=== PATIENT | male | born 1945 | race Caucasian/White ===

== ENCOUNTER 2019-07-20 12:56 | Emergency (ER) | payer MEDICARE ==
[~2019-07-20] VITALS: Ht 174 cm; Wt 97.5 kg
[2019-07-20 13:26] LABS: BILIRUBIN,URINE NEGATIVE (NEGATIVE); UROBILINOGEN,URINE NORMAL (NEGATIVE)
[2019-07-20 13:27] LABS: BASOPHIL % 0.5 % (0.0-0.2); EOSINOPHIL # 0.1 10^3/uL (0.0-0.2); EOSINOPHIL % 2.2 % (0.0-5.0); MONOCYTES # 0.5 10^3/uL (0.3-0.8); NEUTROPHIL # 4.3 10^3/uL (1.8-7.7); NEUTROPHILS % 66.1 % (41.0-85.0); PLATELET COUNT 212 10^3/uL (150-400); RED CELL DISTRIBUTION WIDTH 12.9 % (11.5-14.5)
--- NOTE | 2019-07-20 13:27 | DIREP ---
PROCEDURE:CT HEAD OR BRAIN W/O CONTRAST COMPARISON:None. INDICATIONS:possible stroke TECHNIQUE:CT images were created without intravenous contrast. FINDINGS: VENTRICLES:The ventricles are normal in size and configuration. CEREBRUM:Normal cerebral morphology with appropriate fowler white matter differentiation. CEREBELLUM:Negative. BRAINSTEM:Negative. BASAL CISTERNS:Negative. HEMORRHAGE:No MASS LESION:No ACUTE INFARCT:No SKULL:Normal. SINUSES:Normal. OTHER:None CONCLUSION:No hemorrhage, mass effect, or extra-axial fluid collection. Dictated by: Grace Gutierrez MD on 07/20/2019 at 01:18 PM
[2019-07-20 13:29] VITALS: BP 133/89
[2019-07-20 13:30] LABS: APPEARANCE,URINE CLEAR (CLEAR); UA COLOR YELLOW (YELLOW)
--- NOTE | 2019-07-20 13:30 | PCM.EKG ---
[facility] Test Date: 2019-07-20 Test Time: 13:19:51 Pat Name: WILLI PIERRE Department: [id number] Room: Gender: M [employer]: : [id number] Requested By: FANI HASSAN Order Number: [id number] Reading MD: Measurements Intervals [place] Rate: 73 P: 46 MD: 150 QRS: 30 QRSD: 98 T: 69 QT: 401 QTc: 442 Interpretive Statements Sinus rhythm Abnormal R-wave progression, early transition Minimal ST depression, inferior leads Baseline wander in lead(s) V1,V2 No previous ECG available for comparison Please click the below link to view image of tracing.
[2019-07-20 13:43] VITALS: BP 133/89
[2019-07-20 13:57] LABS: ALANINE AMINOTRANSFERASE(ML) 41 U/L (12-78); ALKALINE PHOSPHATASE 80 U/L (50-136); ASPARTATE AMINO TRANSFERASE 29 U/L (0-35); CALCIUM 8.6 mg/dL (8.4-10.5); GLUCOSE 112 mg/dL (70-110)
--- NOTE | 2019-07-20 13:58 | NUR ---
CRITICAL LAB [id number] RESULTS GIVEN TO JORDYN.
--- NOTE | 2019-07-20 13:59 | NUR ---
MATA COBB SPEAKING WITH MATA
--- NOTE | 2019-07-20 14:00 | NUR ---
DSTICK DSTICK 108.
[2019-07-20 14:17] VITALS: BP 159/101
--- NOTE | 2019-07-20 14:38 | ER.PDOC ---
General Chief Complaint: Stroke Symptoms Stated Complaint: POSSIBLE STROKE Time seen by MD: 12:59 Source: patient Exam Limitations: no limitations History of Present Illness Initial Comments 74 Y/O MALE WITH HX TO ED AFTER BEING RELEASED FROM [facility] TODAY FOR IN PATIENT CARE FOR TIA. IN ROUTE TO HOME GIRLFRIEND STATES HE HAD A 1 HR EPISODE OF CONFUSION AND SLURRED SPEECH.. NOW SYMPTOMS HAVE RESOLVED, PATIENT DOES NOT REMEMBER ABOVE. NOW HASNO COMPLAINTS. NO CHEST PAIN, NO CHEST PAIN, NO HX OF FEVER, NO EXPO TO COVID-19 Timing/Duration: 1 hour Character of AMS: disoriented, confused, other Usually: orientedx3 Associated Symptoms: recent illness Prior symptoms/Treatment: Similar symptoms previous Allergies: Coded Allergies: No Known Allergies (Unverified , 07/20/19) Past Medical History Medical History: hypertension, other Surgical History: other Family History Significant Family History: no pertinent family hx Social History Alcohol Use: none Drug Use: none Reviewed Nursing Reviewed: Vital Signs, Abn. Noted, Nursing Assessment Review of Systems Constitutional: no symptoms reported Eyes: no symptoms reported Ears, Nose, Mouth, Throat: no symptoms reported Respiratory: no symptoms reported Cardiovascular: no symptoms reported Gastrointestinal: no symptoms reported Genitourinary: no symptoms reported Musculoskeletal: no symptoms reported Skin: no symptoms reported Psychiatric/Neurological: other Endocrine: no symptoms reported Hematologic/Lymphatic: no symptoms reported Physical Exam General Appearance: alert, no distress HEENT: no apparent trauma, EOM's intact, no nystagmus, PERRL, ENT inspection n ml, pharynx nml, airway intact, oral exam nml Neuro/Psych: oriented x3, nml speech/cognition, nml mood/affect Cranial Nerves: nml as tested Cerebellar: nml as tested Peripheral Exam: motor nml, sensation nml, reflexes nml Neck: supple, non-tender, no carotid bruit Respiratory: no resp distress, breath sounds nml CVS: reg rate & rhythm, heart sounds nml Abdomen: non-tender, no organomegaly, no distention Skin: color nml, no rash, warm/dry Comments NEURO--NON FOCAL EXAM, NO PRONATOR DRIFT. Results/Orders Results/Orders Orders - ARBEN WALSH DO Bedside Glucose (07/20/19 13:58) Vital Signs Date Time Temp Pulse Resp B/P (MAP) Pulse Ox O2 Delivery O2 Flow Rate FiO2 07/20/19 14:17 80 16 159/101 (120) 97 07/20/19 13:43 97.5 74 24 133/89 (104) 96 07/20/19 13:29 97.5 74 24 96 Laboratory Tests Test 07/20/19 13:15 07/20/19 13:16 07/20/19 13:58 Urine Collection Type VOID Urine Color YELLOW (YELLOW) Urine Appearance CLEAR (CLEAR) Urine Bilirubin NEGATIVE MG/DL (NEGATIVE) Urine Ketones NEGATIVE (NEGATIVE) Urine Specific [place] 1.010 (1.005-1.035) Urine pH 6.5 (5.0-6.0) Urine Protein NEGATIVE (NEGATIVE) Urine Urobilinogen NORMAL (NEGATIVE) Urine Nitrate NEGATIVE (NEGATAIVE) Urine Leukocyte Esterase NEGATIVE (NEGATIVE) Urine Blood NEGATIVE (NEGATIVE) Urine Glucose NORMAL (NEGATIVE) White Blood Count 6.5 10^3/uL (4.5-11.0) Red Blood Count 4.50 10^6/uL (4.50-5.90) Hemoglobin 14.4 g/dL (13.9-16.3) Hematocrit 42.5 % (37.0-53.0) Mean Corpuscular Volume 94.4 fL (78-100) Mean Corpuscular Hemoglobin 32.0 pg (26-34) Mean Corpuscular Hemoglobin Concent 33.9 g/dL (33-36.5) Red Cell Distribution Width 12.9 % (11.5-14.5) Platelet Count 212 10^3/uL (150-400) Mean Platelet Volume 9.0 fL (7.8-11.0) Neutrophils (%) (Auto) 66.1 % (41.0-85.0) Lymphocytes (%) (Auto) 23.0 % (24.0-44.0) L Monocytes (%) (Auto) 8.0 % (5.0-12.0) Neutrophils # (Auto) 4.3 10^3/uL (1.8-7.7) Lymphocytes # (Auto) 1.50 10^3/uL1 (1.0-4.8) Monocytes # (Auto) 0.5 10^3/uL (0.3-0.8) Absolute Immature Granulocyte (auto 0.01 10^3 u/L (0-2) Absolute Eosinophils (auto) 0.1 10^3/uL (0.0-0.2) Immature Granulocytes % 0.20 % (0.00-0.50) Eosinophils % 2.2 % (0.0-5.0) Basophils % 0.5 % (0.0-0.2) H Basophils # 0.0 10^3/uL (0.0-0.1) Prothrombin Time 11.3 SEC (9.3-11.3) Prothrombin Time INR (Non-Therap) 1.1 Activated Partial Thromboplast Time 24.3 SEC (24.67-30.72) D-Dimer 0.52 mg/L (0.19-0.49) *H Sodium Level 139 mmol/L (132-145) Potassium Level 3.5 mmol/L (3.6-5.2) L Chloride Level 103.0 mmol/L (96-109) Carbon Dioxide Level 29.0 mmol/L (20.0-32) Anion Gap 10.5 Blood Urea Nitrogen 19 mg/dL (7-18) H Creatinine 1.49 mg/dL (0.59-1.40) H Estimated GFR () 55.6 (>/=60) Est GFR (CKD-EPI)(Non-Afr [place]) 46.0 (>/=60) BUN/Creatinine Ratio 12.0 Glucose Level 112 mg/dL (70-110) H Calcium Level 8.6 mg/dL (8.4-10.5) Total Bilirubin 0.7 mg/dL (0.2-1.0) Aspartate Amino Transferase (AST) 29 U/L (0-35) Alanine Aminotransferase (ALT) 41 U/L (12-78) Alkaline Phosphatase 80 U/L (50-136) Total Creatine Kinase 190 U/L (39-308) Creatine Kinase MB 1.9 ng/mL (0.5-3.6) Troponin I < 0.02 ng/mL (0.00-0.05) Pro-B-Type Natriuretic Peptide 448 pg/mL (0-450) Total Protein 7.2 g/dL (6.4-8.2) Albumin 4.0 g/dL (3.4-5.0) Globulin 3.2 POC Glucose 108 (70 - 110) Progress Progress AT [facility]--1430--PATIENT HAS NO SYMPTOMS, AGREES TO GO BACK TO [facility] AT TIME OF TRANSFER PATIENT HAS NO SYMPTOMS. EKG/XRAY/CT/US EKG: NSR EKG Comments: 1319---ECG, NSR, RATE---73. Consult/PCP Time Consult/PCP Called: 14:10 Consult/PCP: SRINIVASAN , ADMIT TO DR AGUILAR, WILL TRANSFER TO [facility] Departure Time of Disposition: 14:55 Disposition: 70 DISC/XFER TO [facility] Impression: Primary Impression: TIA (transient ischemic attack) Condition: Stable If Transfer, List PT Destinati: HOSP. Patient Instructions: Stroke Prevention, [id number], Stroke, [id number], Stroke, Therapy After, Adult Referrals: PCP,UNKNOWN (PCP) PRIMARY CARE PROVIDER Duration or Time Spent with Pa: 20 MIN ARBEN WALSH DO July 20, 2019 14:38
== END 2019-07-20 16:00 | disposition other institution (70) ==
LOC: ER 12:56
DX: G45.9 Transient cerebral ischemic attack, unspecified (principal); I10 Essential (primary) hypertension
CPT/HCPCS: 36415; 70450; 80053; 81002; 82550; 82553; 82948; 83880; 84484; 85025; 85379; 85610; 85730; 93005; 99285